=== PATIENT | male | born 2000 | race Caucasian/White ===

== ENCOUNTER → 2021-02-16 | Outpatient (CLI) | payer OTHER ==
--- NOTE | 2021-02-17 08:23 | ECHO ---
ECHOCARDIOGRAM DATE OF PROCEDURE: 02/16/2021 Age: Gender: M Height: 180 cm Weight: 77 kg REFERRING PHYSICIAN: Jose Aguila PA-C INDICATION: Abnormal EKG MEASUREMENTS: IVS: 0.7 LV: 4.7 LVPW: 0.9 LA: 2.9 Aorta: 2.5 IVC: 1.6 Mitral E wave velocity is 80; A wave 52 E prime septal: 7.6 E prime lateral: 15.0 FINDINGS: This study is of good technical quality. The patient is in sinus rhythm. Left ventricle is normal size and normal systolic function with estimated left ventricular ejection fraction (LVEF) 60% to 65%. Computer-generated left ventricular ejection fraction (LVEF) was 66%. Right ventricle has normal size and systolic function as well. Both atria appear normal. All four cardiac valves were well seen and appear normal. No pericardial effusion is present. Inferior vena cava is normal size and appropriately collapses with inspiration. Aortic root, aortic arch and visualized segment of abdominal aorta all appear normal. Doppler interrogation reveals competent aortic valve. There is trace mitral and trace tricuspid insufficiency. Calculated pulmonary artery pressure is within normal limits. Pulmonic valve is functionally competent. Mitral inflow pattern and tissue Doppler imaging of mitral annulus revealed normal diastolic function. CONCLUSIONS: 1. Study is of good technical quality. 2. Normal left ventricle (LV) size with normal left ventricular (LV) systolic and diastolic function. 3. Trace mitral and tricuspid insufficiency. 4. Normal central venous pressure and likely normal pulmonary artery pressure. 5. Essentially normal echocardiogram.
== END ==
LOC: M CARPUL 14:12
PROVIDERS: ATTEND Physician Assistant
DX: R09.89 Other specified symptoms and signs involving the circulatory and respiratory systems (principal)